=== PATIENT | female | born 1950 | race Caucasian/White ===

== ENCOUNTER 2024-12-25 18:02 | Emergency (ER) | payer MEDICARE, SELFPAY ==
[2024-12-25] VITALS (8 sets, daily range): BP systolic 165–169; BP diastolic 78–88; PULSE 73–118; RESP 16–36; TEMP 36.8; O2SAT 93–97; BMI 23.8
--- NOTE | 2024-12-25 18:11 | DI.RAD.S_ITS ---
PROCEDURE: XR RIBS RT 2V INDICATIONS: fall, pain TECHNIQUE: 2 views of the ribs were acquired. COMPARISON: [facility], CR, XR CHEST 2V, 12/25/2024, 18:11. FINDINGS: Surgical changes and devices: None. Bones and chest wall: No fractures or dislocations. No suspicious bony lesions. Overlying soft tissues appear unremarkable. Lungs and pleura: The visualized lung appears clear. No pleural effusions or pneumothorax are visible. IMPRESSION: No visualized acute fracture or dislocation. However, if clinical concern and/or pain persist, short interval imaging followup in 7-10 days is recommended, as occult injury cannot be definitively excluded. Dictated by: Chayo Howell M.D. on 12/25/2024 at 18:59 Approved by: Chayo Howell M.D. on 12/25/2024 at 18:59
--- NOTE | 2024-12-25 18:11 | DI.RAD.S_ITS ---
PROCEDURE: XR CHEST 2V INDICATIONS: SOB, right rib pain TECHNIQUE: 2 views of the chest were acquired. COMPARISON: None. FINDINGS: Surgical changes and devices: None. Lungs and pleura: Lungs are clear. No pleural effusions or pneumothorax. Mediastinum: Mediastinal contours are normal. Heart size is prominent. No acute pulmonary process. Bones and chest wall: No suspicious bony abnormalities. Soft tissues appear unremarkable. IMPRESSION: No acute pulmonary process. Dictated by: Chayo Howell M.D. on 12/25/2024 at 18:49 Approved by: Chayo Howell M.D. on 12/25/2024 at 18:49
--- NOTE | 2024-12-25 18:13 | EKG_ITS ---
[place] [id number] [place] [id number] Test Date: 2024-12-25 Pat Name: Keli Ortez Department: Room: Gender: Female [employer]: ZACHARY : 1950 Requested By: Order Number: [id number] Reading MD: Nhan Shane Measurements Intervals [place] Rate: 103 P: 52 IA: 146 QRS: -18 QRSD: 82 T: 36 QT: 372 QTc: 487 Interpretive Statements Sinus tachycardia Minimal voltage criteria for LVH, may be normal variant ( R in aVL ) Nonspecific ST abnormality Electronically Signed On 01-10-2025 8:05:07 PDT by Nhan Shane
[2024-12-25 18:26] LABS: Add Manual Diff / Slide Review NO; Hematocrit 40.0 % (36-46); Hemoglobin 13.6 g/dL (12.0-16.0); Lymphocytes Absolute Auto 1200 /uL (1100-4500); Mean Corpuscular HGB Conc 34.1 % (30-36); Mean Corpuscular Hemoglobin 34.4 PG (26-34); Mean Corpuscular Volume 100.9 fL (80-100); Platelet Count 156 X10^3/uL (150-400)
[2024-12-25 18:33] LABS: INR 1.0 (0.9-1.3); Prothrombin Time 11.8 SECONDS (9.4-12.5)
[2024-12-25 18:36] LABS: Lactate (Lactic Acid) 1.4 mmol/L (0.7-2.1)
[2024-12-25 18:37] LABS: Alanine Aminotransferase 39 IU/L (<35); Albumin 4.7 g/dL (3.5-5.0); Albumin Globulin Ratio 1.2 (1.0-2.8); Alkaline Phosphatase 78 U/L (38-126); Blood Urea Nitrogen 11 mg/dL (7-17); Calcium 9.5 mg/dL (8.4-10.2); Carbon Dioxide 22 mmol/L (22-32); Chloride 99 mmol/L (98-107); Estimated Glomerular Filt Rate > 60 mL/min (>60); Globulin 4.0 g/dL (1.7-4.1); Glucose 106 mg/dL (70-99); HEMOLYSIS 32 (0-50); Potassium 3.8 mmol/L (3.4-5.1); Sodium 134 mmol/L (137-145); Total Protein 8.7 g/dL (6.3-8.2)
[2024-12-25 18:49] LABS: NT-proBNP (BNP-Adult 18+) 312 pg/mL (<125); Troponin I < 0.012 ng/mL (0.01-0.034)
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
== END 2024-12-25 20:54 | disposition home or self-care (01) ==
PROVIDERS: Emergency Provider Student in an Organized Health Care Education/Training Program; Family Provider Internal Medicine
DX: R09.82 Postnasal drip (principal); R07.81 Pleurodynia; W18.09XA Striking against other object with subsequent fall, initial encounter
CPT/HCPCS: 36415; 71046; 71100; 80053; 83605; 83880; 84484; 85025; 85610; 93005; 99283; 99284